=== PATIENT | male | born 1990 | race Caucasian/White ===

== ENCOUNTER 2016-12-01 19:19 | Emergency (ER) | payer OTHER ==
[~2016-12-01] VITALS: Ht 177.8 cm; Wt 93.6 kg
[2016-12-01 20:01] LABS: HEMATOCRIT 46.4 % (39.2-51.8); HEMOGLOBIN 15.7 g/dL (13.7-18.0); WHITE BLOOD COUNT 10.7 x10^3/uL (3.4-10)
[2016-12-01 20:12] LABS: BLOOD UREA NITROGEN 17 mg/dL (7-18)
[2016-12-01 20:13] LABS: ASPARTATE AMINO TRANSFERASE 36 U/L (15-37)
[2016-12-01] MEDS ORDERED: HYDROcodone/APAP 5/325 TABLET PO ONE (22:30)
[2016-12-01] MEDS ORDERED: HYDROcodone/APAP 5/325 TABLET ONE (23:04)
[2016-12-01 23:44] VITALS: BP 134/75
== END 2016-12-01 23:46 | disposition home or self-care (01) ==
LOC: ED 23:04
DX: N17.9 Acute kidney failure, unspecified (principal); R10.9 Unspecified abdominal pain
CPT/HCPCS: 36415; 74000; 76770; 80053; 81001; 82570; 83690; 84156; 85025; 99285

== ENCOUNTER 2016-12-05 07:59 | Inpatient (IN) | payer OTHER ==
[~2016-12-05] VITALS: Ht 180.3 cm; Wt 91.0 kg
[2016-12-05] MEDS ORDERED: PLEASE ENTER HEIGHT AND WEIGHT MC SCH (08:30)
[2016-12-05 09:00] VITALS: BP 136/88
[2016-12-05 09:01] LABS: HEMATOCRIT 45.6 % (39.2-51.8); HEMOGLOBIN 15.8 g/dL (13.7-18.0); WHITE BLOOD COUNT 8.1 x10^3/uL (3.4-10)
[2016-12-05 09:05] LABS: ASPARTATE AMINO TRANSFERASE 17 U/L (15-37); BLOOD UREA NITROGEN 23 mg/dL (7-18)
[2016-12-05 10:09] LABS: PATH.CAST-FLAG NOT PRESENT; SPERM-FLAG NOT PRESENT; SRC-FLAG NOT PRESENT; XTAL-FLAG NOT PRESENT; YLC-FLAG NOT PRESENT
[2016-12-05] MEDS: SODIUM CHLORIDE 0.9% 1,000 ML IV SCH ×2 (10:50→20:06)
[2016-12-05] MEDS ORDERED: POLYETHYLENE GLYCOL 17 GM PACKET PO PRN (11:00)
[2016-12-05] MEDS ORDERED: ONDANSETRON 2MG/ML, 2ML IVPush PRN (11:00)
[2016-12-05] MEDS ORDERED: BISACODYL 10 MG SUPP PR PRN (11:00)
[2016-12-05] MEDS ORDERED: DOCUSATE 100 MG CAPSULE PO PRN (11:00)
[2016-12-05] MEDS ORDERED: ACETAMINOPHEN 325 MG TABLET PO PRN (11:00)
[2016-12-05] MEDS: HEPARIN 5,000 UNITS/ML, 1ML SQ SCH ×2 (13:06→20:05)
[2016-12-05 14:34] VITALS: BP 129/80
[2016-12-05 20:35] VITALS: BP 149/79
[2016-12-06 02:00] VITALS: BP 166/93
[2016-12-06] MEDS: HEPARIN 5,000 UNITS/ML, 1ML SQ SCH ×3 (04:57→21:56)
[2016-12-06 05:25] LABS: HEMATOCRIT 44.4 % (39.2-51.8); HEMOGLOBIN 15.4 g/dL (13.7-18.0); WHITE BLOOD COUNT 6.5 x10^3/uL (3.4-10)
[2016-12-06 05:41] LABS: BLOOD UREA NITROGEN 22 mg/dL (7-18)
[2016-12-06 05:53] LABS: ASPARTATE AMINO TRANSFERASE 20 U/L (15-37)
[2016-12-06 07:34] VITALS: BP 162/76
[2016-12-06 14:00] VITALS: BP 125/78
[2016-12-06] MEDS ORDERED: ACETAMINOPHEN 325 MG TABLET PO PRN (14:30)
[2016-12-06] MEDS ORDERED: BISACODYL 10 MG SUPP PR PRN (14:30)
[2016-12-06] MEDS ORDERED: POLYETHYLENE GLYCOL 17 GM PACKET PO PRN (14:30)
[2016-12-06] MEDS ORDERED: ONDANSETRON 2MG/ML, 2ML IVPush PRN (14:30)
[2016-12-06 19:50] VITALS: BP 138/87
[2016-12-07 02:23] VITALS: BP 131/82
[2016-12-07] MEDS: HEPARIN 5,000 UNITS/ML, 1ML SQ SCH ×2 (05:00→13:00)
[2016-12-07 05:39] LABS: BLOOD UREA NITROGEN 27 mg/dL (7-18)
[2016-12-07 07:06] VITALS: BP 147/78
[2016-12-07] MEDS ORDERED: LIDOCAINE 1%, 20ML ONE (10:28)
[2016-12-07] MEDS ORDERED: MIDAZOLAM 1 MG/ML, 5ML ONE (10:53)
[2016-12-07] MEDS ORDERED: FENTANYL PF 100 MCG/2ML ONE (10:54)
[2016-12-07] MEDS ORDERED: FLUMAZENIL 0.1 MG/1 ML, 5ML ONE (10:54)
[2016-12-07] MEDS ORDERED: NALOXONE 1 MG/ML, 2ML ONE (10:54)
[2016-12-07] MEDS ORDERED: PRED20TA PO (18:20)
[2016-12-08 09:06] LABS: COMPLEMENT C3 243 mg/dL (82-167); COMPLEMENT C4 54 mg/dL (14-44); COMPLEMENT TOTAL (CH50) >60 U/mL (42-60)
[2016-12-08 14:07] LABS: PROTEINASE 3 (PR-3) AB <3.5 U/mL (0.0-3.5)
[2016-12-09 09:07] LABS: COMPLEMENT C3 235 mg/dL (82-167); COMPLEMENT C4 50 mg/dL (14-44); INTERMYOFIBRILLAR AB Negative (Neg:<1:20); MITOCHONDRIAL (M2) AB 5.2 Units (0.0-20.0); PARIETAL CELL AB 4.2 Units (0.0-20.0); RA LATEX TURBIDITY <10.0 IU/mL (0.0-13.9); SARCOLEMMA AB Negative (Neg:<1:20); STRIATION AB Negative (Neg:<1:40); THYROID PEROXIDASE (TPO) AB 217 IU/mL (0-34)
== END 2016-12-07 18:50 | disposition home or self-care (01) | DRG 682 ==
LOC: 4EST 07:59 → 4WST 08:38
PROVIDERS: ADMIT Internal Medicine; ATTEND Internal Medicine
PROC: 0TB13ZX Excision of Left Kidney, Percutaneous Approach, Diagnostic (ICD-10-PCS; principal; 2016-12-07)
DX: I12.9 Hypertensive chronic kidney disease with stage 1 through stage 4 chronic kidney disease, or unspecified chronic kidney disease (principal); N01.9 Rapidly progressive nephritic syndrome with unspecified morphologic changes; N17.9 Acute kidney failure, unspecified; N18.4 Chronic kidney disease, stage 4 (severe); R00.1 Bradycardia, unspecified; F17.210 Nicotine dependence, cigarettes, uncomplicated; F12.90 Cannabis use, unspecified, uncomplicated; K59.00 Constipation, unspecified; R00.0 Tachycardia, unspecified; X50.0XXA Overexertion from strenuous movement or load, initial encounter; Z90.89 Acquired absence of other organs; Z82.49 Family history of ischemic heart disease and other diseases of the circulatory system; Z84.1 Family history of disorders of kidney and ureter
CPT/HCPCS: 36415; 50200; 77012; 80048; 80053; 80074; 81001; 82306; 82533; 82550; 82570; 83516; 83520; 83735; 83970; 84100; 84156; 84443; 85025; 85610; 86038; 86160; 86162; 86225; 86235; 86255; 86256; 86376; 86431; 88300; 93306; 99156; 99157; J1644; J2250; J2930; J3010; J3490; J2310; J7030; J7512